=== PATIENT | male | born 1985 | race Hispanic/Latino ===

== ENCOUNTER 2018-07-22 03:33 | Inpatient (IN) | payer OTHER ==
[2018-07-22] VITALS (12 sets, daily range): BP systolic 100–149; BP diastolic 64–106
[~2018-07-22] VITALS: Ht 180.3 cm; Wt 162.7 kg
[2018-07-22] MEDS ORDERED: MORPHINE SULFATE 4 MG/1ML SYG IV PRN (04:30)
[2018-07-22] MEDS ORDERED: ONDANSETRON HCL 4 MG/2 ML VIAL IV PRN (04:30)
[2018-07-22] MEDS ORDERED: ACETAMINOPHEN 325 MG TAB PO PRN ×2 (04:30)
[2018-07-22] MEDS ORDERED: MORPHINE SULFATE 2 MG/ML 1ML SYG IV PRN (04:30)
[2018-07-22] MEDS ORDERED: LORAZEPAM 2 MG/ML 1 ML VIAL IVP PRN (04:45)
[2018-07-22] MEDS ORDERED: DEXTROSE 50%-WATER 50 ML DISP.SYRIN IV PRN ×2 (05:00→10:15)
[2018-07-22] MEDS ORDERED: GLUCAGON 1MG KIT 1 MG ML IM PRN ×2 (05:00→10:15)
[2018-07-22] MEDS: INSULIN HUMULIN R 100 UNIT/ML 3ML SQ SCH ×4 (06:14→21:00)
[2018-07-22 08:49] LABS: HEMATOCRIT 44.9 % (42-54); MEAN CORPUSCULAR HEMOGLOBIN 25.4 pg (27.0-33.0); MEAN CORPUSCULAR HGB CONC 32.1 g/dL (32.0-36.0); PLATELET COUNT (AUTO) 340 K/uL (130-400); RED BLOOD CELL COUNT(AUTO) 5.68 MIL/uL (4.50-6.20); RED CELL DISTRIBUTION WIDTH 16.7 % (11.0-15.5)
[2018-07-22 09:03] LABS: INR 0.92 (0.85-1.15); PARTIAL THROMBOPLASTIN TIME 27.7 SEC (26.3-35.5); PROTHROMBIN TIME 9.7 SEC (9.6-11.6)
[2018-07-22 09:07] LABS: CREATININE 1.1 mg/dL (0.5-1.5); POTASSIUM 4.8 mmol/L (3.5-5.1)
[2018-07-22] MEDS ORDERED: IOHEXOL 350 MG/ML 100ML INFUS..BTL IV ONE (09:13)
[2018-07-22] MEDS ORDERED: HEPARIN SODIUM 1000UNIT/ML 10ML VIAL ONE (09:13)
[2018-07-22] MEDS ORDERED: LIDOCAINE HCL 1% 20 ML VIAL ONE (09:13)
[2018-07-22] MEDS ORDERED: IOHEXOL-350 50ML VIAL IV ONE (09:13)
[2018-07-22] MEDS ORDERED: MIDAZOLAM HCL 1 MG/ML 2ML VIAL ONE (09:47)
[2018-07-22] MEDS: FAMOTIDINE/PF 20 MG/2 ML VIAL IV SCH ×2 (10:45→20:42)
--- NOTE | 2018-07-22 11:30 | NUR ---
INITIAL Met with pt this am to discuss dcp. Pt states that he lives w spouse and 2children. Prior to admission he was independent w ambulation and ADLs. Per pt he feels safe and comfortable to return home at [facility]. Pt has no DME or prior services. Pt states that he seeks medical care @ [facility] and obtains medications thru their pharmacy. Discussed w pt cardiology recommendation for [facility] @ [facility]. Pt verbalizes understanding and signed GAYLE/PC. Orders and clinical faxed to [facility]. [facility] to continue to follow. Addendum: 07/22/18 at 1626 by SUSAN WESLEY CM Amended: Links added.
[2018-07-22] MEDS ORDERED: FUROSEMIDE 40 MG TABLET PO SCH (17:00)
[2018-07-22] MEDS: CARVEDILOL 6.25 MG TABLET PO SCH (20:42)
[2018-07-23] VITALS (7 sets, daily range): BP systolic 117–140; BP diastolic 63–99
[2018-07-23 03:31] LABS: BASOPHILS % (AUTO) 0.8 % (0.0-5.0); EOSINOPHILS % (AUTO) 4.2 % (0.0-8.0); HEMATOCRIT 44.4 % (42-54); LYMPHOCYTES % (AUTO) 11.2 % (21.0-51.0); MEAN CORPUSCULAR HEMOGLOBIN 25.6 pg (27.0-33.0); MEAN CORPUSCULAR HGB CONC 32.1 g/dL (32.0-36.0); MEAN CORPUSCULAR VOLUME 79.7 fL (79-99); MONOCYTES % (AUTO) 7.2 % (3.0-13.0); NEUTROPHILS % (AUTO) 76.6 % (40.0-77.0); PLATELET COUNT (AUTO) 310 K/uL (130-400); RED BLOOD CELL COUNT(AUTO) 5.57 MIL/uL (4.50-6.20); RED CELL DISTRIBUTION WIDTH 16.6 % (11.0-15.5); WHITE BLOOD COUNT (AUTO) 11.8 K/uL (4.8-10.8)
[2018-07-23 03:49] LABS: B-TYPE NATRIURETIC PEPTIDE 54 pg/mL (0-100)
[2018-07-23 03:50] LABS: CREATININE 1.1 mg/dL (0.5-1.5); POTASSIUM 4.5 mmol/L (3.5-5.1)
[2018-07-23] MEDS: INSULIN HUMULIN R 100 UNIT/ML 3ML SQ SCH ×2 (05:37→20:51)
[2018-07-23] MEDS: FAMOTIDINE/PF 20 MG/2 ML VIAL IV SCH ×2 (10:20→20:04)
[2018-07-23] MEDS: SPIRONOLACTONE 25 MG TAB PO SCH (10:20)
[2018-07-23] MEDS: LISINOPRIL 10 MG TABLET PO SCH (10:20)
[2018-07-23] MEDS: FOLIC ACID/VITAMIN B COMP W-C 1 MG CAPSULE PO SCH (10:20)
[2018-07-23] MEDS: FUROSEMIDE 40 MG TABLET PO SCH (10:21)
[2018-07-23] MEDS: CARVEDILOL 6.25 MG TABLET PO SCH ×2 (10:21→20:06)
--- NOTE | 2018-07-23 12:54 | NUR ---
RD Notification Patient with Pulmonary HTN as per EMR. Patient tolerating current diet with no report of GI distress and good PO (100%). Patient Obesity Class III (BMI 51.7). Patient LBM 07/22/18. Patient monitored labs: Na 135, Cl 98, BUN 20, Glu 118. RD to continue to monitor. Please notify RD as nutritional concerns arise. Thank you. Addendum: 07/23/18 at [address] Amended: Links added.
[2018-07-24 03:45] LABS: HEMATOCRIT 45.1 % (42-54); MEAN CORPUSCULAR HGB CONC 31.2 g/dL (32.0-36.0); MEAN CORPUSCULAR VOLUME 80.2 fL (79-99); PLATELET COUNT (AUTO) 356 K/uL (130-400); RED BLOOD CELL COUNT(AUTO) 5.62 MIL/uL (4.50-6.20); RED CELL DISTRIBUTION WIDTH 16.7 % (11.0-15.5); WHITE BLOOD COUNT (AUTO) 12.8 K/uL (4.8-10.8)
[2018-07-24 03:51] VITALS: BP 133/51
[2018-07-24 03:53] LABS: CREATININE 1.2 mg/dL (0.5-1.5); POTASSIUM 4.2 mmol/L (3.5-5.1)
[2018-07-24 04:04] LABS: HEMOGLOBIN A1C 6.8 % (4.0-6.0)
[2018-07-24 04:13] LABS: B-TYPE NATRIURETIC PEPTIDE 42 pg/mL (0-100)
[2018-07-24] MEDS: INSULIN HUMULIN R 100 UNIT/ML 3ML SQ SCH ×4 (05:52→20:46)
[2018-07-24 07:00] VITALS: BP 115/68
--- NOTE | 2018-07-24 07:40 | NUR ---
ASSESSMENT ENCOUNTERED PT A&OX3, CALM COOPERATIVE AND DOES NOT APPEAR TO BE IN ANY DISTRESS NOR ANY NEURO DEFICITS PRESENT. PT DENIES PAIN, SOB, NAUSEA. PT IS AMBULATORY, GAIT STEADY AND STRONG WITH STAND BY ASSIST. PT IS NPO FOR AICD PLACEMENT BY DR LAI. CALL LIGHT WITHIN REACH, FAMILY AT BEDSIDE.
[2018-07-24] MEDS: LISINOPRIL 10 MG TABLET PO SCH (08:40)
[2018-07-24] MEDS: CARVEDILOL 6.25 MG TABLET PO SCH ×2 (08:40→20:35)
[2018-07-24] MEDS: FAMOTIDINE/PF 20 MG/2 ML VIAL IV SCH ×2 (09:00→20:35)
[2018-07-24 11:00] VITALS: BP 126/72
[2018-07-24] MEDS: SPIRONOLACTONE 25 MG TAB PO SCH (14:01)
[2018-07-24] MEDS: FOLIC ACID/VITAMIN B COMP W-C 1 MG CAPSULE PO SCH (14:01)
[2018-07-24] MEDS: FUROSEMIDE 40 MG TABLET PO SCH (14:02)
[2018-07-24 16:00] VITALS: BP 115/72
[2018-07-24] MEDS ORDERED: METRONIDAZOLE 500 MG TABLET PO SCH (17:15)
[2018-07-24] MEDS ORDERED: LEVOFLOXACIN 500 MG/D5W 100 ML 100 ML IV SCH ×2 (17:15→20:00)
[2018-07-24 20:04] VITALS: BP 115/58
[2018-07-24] MEDS: METRONIDAZOLE 500 MG TABLET PO SCH (21:37)
[2018-07-24 23:44] VITALS: BP 121/64
[2018-07-25 03:49] VITALS: BP 134/58
[2018-07-25 04:26] LABS: HEMATOCRIT 44.8 % (42-54); MEAN CORPUSCULAR HEMOGLOBIN 25.3 pg (27.0-33.0); MEAN CORPUSCULAR HGB CONC 31.6 g/dL (32.0-36.0); MEAN CORPUSCULAR VOLUME 80.1 fL (79-99); NUCLEATED RED BLOOD CELLS 0.1 % (0.0-0.19); PLATELET COUNT (AUTO) 314 K/uL (130-400); RED CELL DISTRIBUTION WIDTH 16.8 % (11.0-15.5); WHITE BLOOD COUNT (AUTO) 12.7 K/uL (4.8-10.8)
[2018-07-25 04:39] LABS: CREATININE 1.2 mg/dL (0.5-1.5); MAGNESIUM 1.8 mg/dL (1.80-2.40); PHOSPHORUS 4.2 mg/dL (2.5-4.9); POTASSIUM 4.2 mmol/L (3.5-5.1)
[2018-07-25] MEDS: METRONIDAZOLE 500 MG TABLET PO SCH ×3 (05:38→21:36)
[2018-07-25] MEDS: INSULIN HUMULIN R 100 UNIT/ML 3ML SQ SCH ×4 (05:53→21:00)
--- NOTE | 2018-07-25 07:26 | NUR ---
ASSESSMENT PT IS AAOX4 DENIES CP DENIES SOB DENIES NV NO COMPLAINTS RESTING IN BED. NO VISIBLE SIGNS OF DISTRESS NOTED, CALL LIGHT WITHIN REACH.
[2018-07-25] MEDS: FAMOTIDINE/PF 20 MG/2 ML VIAL IV SCH ×2 (07:58→21:33)
[2018-07-25] MEDS: FOLIC ACID/VITAMIN B COMP W-C 1 MG CAPSULE PO SCH (07:58)
[2018-07-25] MEDS: LOSARTAN 50 MG TABLET PO SCH (07:58)
[2018-07-25] MEDS: CARVEDILOL 6.25 MG TABLET PO SCH ×2 (07:58→21:33)
[2018-07-25] MEDS: FUROSEMIDE 40 MG TABLET PO SCH (07:58)
[2018-07-25] MEDS: SPIRONOLACTONE 25 MG TAB PO SCH (07:58)
[2018-07-25 08:00] VITALS: BP 114/75
[2018-07-25] MEDS ORDERED: NEBI10TA PO (09:00)
[2018-07-25] MEDS ORDERED: BUSP10TA3 PO (09:00)
[2018-07-25] MEDS ORDERED: BUPR-93 PO (09:00)
[2018-07-25] MEDS ORDERED: PITA2TAB2 PO (09:00)
[2018-07-25] MEDS ORDERED: LIRA0.6P2 SQ (09:00)
[2018-07-25] MEDS ORDERED: MELA1TAB17 PO (09:00)
[2018-07-25] MEDS ORDERED: SITA1TBM7 PO (09:00)
[2018-07-25 11:59] VITALS: BP 108/71
[2018-07-25] MEDS ORDERED: VANCOMYCIN 1GM+NS 250ML 250 ML IV PRN (12:15)
[2018-07-25 14:15] LABS: APPEARANCE,URINE Clear (CLEAR); BILIRUBIN,URINE Negative (NEGATIVE); COLOR,URINE Yellow (YELLOW); GLUCOSE, URINE (UA) Negative (NEGATIVE); KETONES,URINE Negative (NEGATIVE); LEUKOCYTE ESTERASE ,URINE Negative (NEGATIVE); NITRATE,URINE Negative (NEGATIVE); OCCULT BLOOD,URINE Negative (NEGATIVE); PROTEIN,URINE Negative (NEGATIVE); UROBILINOGEN,URINE 0.2 mg/dL (0.2-1.0)
[2018-07-25 14:49] LABS: BACTERIA,URINE Rare /HPF (None Seen); RBC,URINE 0-1 /HPF (0-1); SQUAMOUS EPITHELIAL CELL,UR None Seen /HPF (0-2); WBC,URINE 0-1 /HPF (0-1)
[2018-07-25 16:00] VITALS: BP 128/83
[2018-07-25 20:46] VITALS: BP 122/68
[2018-07-25] MEDS: LEVOFLOXACIN 500 MG TABLET PO SCH (21:33)
[2018-07-26 00:40] VITALS: BP 119/75
[2018-07-26 03:36] LABS: BASOPHILS % (AUTO) 0.8 % (0.0-5.0); EOSINOPHILS % (AUTO) 3.4 % (0.0-8.0); HEMATOCRIT 44.3 % (42-54); LYMPHOCYTES % (AUTO) 12.5 % (21.0-51.0); MEAN CORPUSCULAR HGB CONC 31.2 g/dL (32.0-36.0); MEAN CORPUSCULAR VOLUME 79.9 fL (79-99); MONOCYTES % (AUTO) 5.9 % (3.0-13.0); NEUTROPHILS % (AUTO) 77.4 % (40.0-77.0); PLATELET COUNT (AUTO) 353 K/uL (130-400); RED BLOOD CELL COUNT(AUTO) 5.54 MIL/uL (4.50-6.20); RED CELL DISTRIBUTION WIDTH 16.9 % (11.0-15.5); WHITE BLOOD COUNT (AUTO) 13.3 K/uL (4.8-10.8)
[2018-07-26 03:41] LABS: CREATININE 1.3 mg/dL (0.5-1.5); POTASSIUM 3.8 mmol/L (3.5-5.1)
[2018-07-26 04:39] VITALS: BP 132/67
[2018-07-26] MEDS: METRONIDAZOLE 500 MG TABLET PO SCH ×3 (06:12→22:31)
[2018-07-26] MEDS: INSULIN HUMULIN R 100 UNIT/ML 3ML SQ SCH ×4 (06:14→21:00)
[2018-07-26 07:37] VITALS: BP 134/70
--- NOTE | 2018-07-26 08:00 | NUR ---
ASSESSMENT PT IS AAOX3 DENIES CP DENIES SOB DENIES NV NO COMPLAINTS RESTING IN BED. NPO STATUS FOR AICD PLACEMENT TODAY.
[2018-07-26] MEDS: FUROSEMIDE 40 MG TABLET PO SCH (08:18)
[2018-07-26] MEDS: LACTOBACILLUS RHAMNOSUS GG 1 EACH CAP.SPRINK PO SCH (08:18)
[2018-07-26] MEDS: CARVEDILOL 6.25 MG TABLET PO SCH ×2 (08:18→20:27)
[2018-07-26] MEDS: FOLIC ACID/VITAMIN B COMP W-C 1 MG CAPSULE PO SCH (08:18)
[2018-07-26] MEDS: LOSARTAN 50 MG TABLET PO SCH (08:18)
[2018-07-26] MEDS: SPIRONOLACTONE 25 MG TAB PO SCH (08:18)
[2018-07-26] MEDS: FAMOTIDINE/PF 20 MG/2 ML VIAL IV SCH ×2 (08:29→20:28)
--- NOTE | 2018-07-26 09:50 | NUR ---
REY HUERTA ROUNDED POSTPONED AICD PLACEMENT FOR TOMORROW, SCHEDULING MADE AWARE.
[2018-07-26 11:16] VITALS: BP 107/71
[2018-07-26 15:36] VITALS: BP 130/81
[2018-07-26] MEDS ORDERED: IOHEXOL 350 MG/ML 100ML INFUS..BTL IV ONE (19:14)
[2018-07-26 19:51] VITALS: BP 144/84
[2018-07-26] MEDS: LEVOFLOXACIN 500 MG TABLET PO SCH (20:27)
[2018-07-27] VITALS (7 sets, daily range): BP systolic 119–137; BP diastolic 73–92
[2018-07-27 04:00] LABS: HEMATOCRIT 44.2 % (42-54); MEAN CORPUSCULAR HEMOGLOBIN 25.7 pg (27.0-33.0); MEAN CORPUSCULAR HGB CONC 32.1 g/dL (32.0-36.0); MEAN CORPUSCULAR VOLUME 80.2 fL (79-99); PLATELET COUNT (AUTO) 313 K/uL (130-400); RED BLOOD CELL COUNT(AUTO) 5.51 MIL/uL (4.50-6.20); RED CELL DISTRIBUTION WIDTH 16.7 % (11.0-15.5); WHITE BLOOD COUNT (AUTO) 10.6 K/uL (4.8-10.8)
[2018-07-27 04:16] LABS: CREATININE 1.2 mg/dL (0.5-1.5); POTASSIUM 4.5 mmol/L (3.5-5.1)
[2018-07-27] MEDS: INSULIN HUMULIN R 100 UNIT/ML 3ML SQ SCH ×3 (06:18→21:00)
[2018-07-27] MEDS: METRONIDAZOLE 500 MG TABLET PO SCH ×3 (06:21→21:14)
--- NOTE | 2018-07-27 07:30 | NUR ---
ASSESSMENT ENCOUNTERED PT A&OX3, CALM COOPERATIVE AND DOES NOT APPEAR TO BE IN ANY DISTRESS NOR ANY NEURO DEFICITS PRESENT. PT DENIES PAIN, SOB, NAUSEA. PT IS AMBULATORY, GAIT STEADY AND STRONG WITH STAND BY ASSIST. PT IS NPO FOR AICD PLACEMENT BY DR LAI, CALL LIGHT WITHIN REACH, FAMILY AT BEDSIDE.
[2018-07-27] MEDS: FOLIC ACID/VITAMIN B COMP W-C 1 MG CAPSULE PO SCH (12:30)
[2018-07-27] MEDS: FAMOTIDINE/PF 20 MG/2 ML VIAL IV SCH ×2 (12:30→21:13)
[2018-07-27] MEDS: LOSARTAN 50 MG TABLET PO SCH (12:31)
[2018-07-27] MEDS: CARVEDILOL 6.25 MG TABLET PO SCH ×2 (12:31→21:14)
[2018-07-27] MEDS: FUROSEMIDE 40 MG TABLET PO SCH (12:31)
[2018-07-27] MEDS: SPIRONOLACTONE 25 MG TAB PO SCH (12:31)
[2018-07-27] MEDS: LEVOFLOXACIN 500 MG TABLET PO SCH (21:14)
--- NOTE | 2018-07-27 22:05 | NUR ---
PATIENT REQUESTED THAT IV SITE BE CHANGED. IV FLUSHED WITHOUT DIFFICULTY. NEW IV SITE RT AC WITH 2O GAUGE, GOOD BLOOD RETURN NOTED AND FLUSHED WITHOUT DIFFICULTY. LT AC IV DC'D.
[2018-07-28] VITALS (7 sets, daily range): BP systolic 102–129; BP diastolic 61–78
[2018-07-28 03:38] LABS: HEMATOCRIT 45.7 % (42-54); MEAN CORPUSCULAR HEMOGLOBIN 25.2 pg (27.0-33.0); MEAN CORPUSCULAR HGB CONC 31.3 g/dL (32.0-36.0); MEAN CORPUSCULAR VOLUME 80.3 fL (79-99); NUCLEATED RED BLOOD CELLS 0.1 % (0.0-0.19); PLATELET COUNT (AUTO) 331 K/uL (130-400); WHITE BLOOD COUNT (AUTO) 12.2 K/uL (4.8-10.8)
[2018-07-28 03:46] LABS: CREATININE 1.2 mg/dL (0.5-1.5)
[2018-07-28] MEDS: METRONIDAZOLE 500 MG TABLET PO SCH ×3 (05:21→21:05)
[2018-07-28] MEDS: INSULIN HUMULIN R 100 UNIT/ML 3ML SQ SCH ×3 (05:32→16:14)
--- NOTE | 2018-07-28 07:40 | NUR ---
ASSESSMENT ENCOUNTERED PT ASLEEP BUT AROUSEABLE, A&OX3, CALM COOPERATIVE AND DOES NOT APPEAR TO BE IN ANY DISTRESS NOR ANY NEURO DEFICITS PRESENT. PT DENIES PAIN, SOB, NAUSEA. PT IS AMBULATORY, GAIT STEADY AND STRONG WITH STAND BY ASSIST. CALL LIGHT WITHIN REACH.
[2018-07-28] MEDS: FOLIC ACID/VITAMIN B COMP W-C 1 MG CAPSULE PO SCH (09:18)
[2018-07-28] MEDS: SPIRONOLACTONE 25 MG TAB PO SCH (09:19)
[2018-07-28] MEDS: CARVEDILOL 6.25 MG TABLET PO SCH ×2 (09:19→20:19)
[2018-07-28] MEDS: LACTOBACILLUS RHAMNOSUS GG 1 EACH CAP.SPRINK PO SCH ×2 (09:19→09:22)
[2018-07-28] MEDS: FUROSEMIDE 40 MG TABLET PO SCH (09:19)
[2018-07-28] MEDS: FAMOTIDINE/PF 20 MG/2 ML VIAL IV SCH ×2 (09:19→20:18)
[2018-07-28] MEDS: LOSARTAN 50 MG TABLET PO SCH (09:20)
[2018-07-28] MEDS: LEVOFLOXACIN 500 MG TABLET PO SCH (20:19)
[2018-07-29 04:06] VITALS: BP 129/78
[2018-07-29 04:20] LABS: HEMATOCRIT 43.5 % (42-54); MEAN CORPUSCULAR HGB CONC 31.4 g/dL (32.0-36.0); MEAN CORPUSCULAR VOLUME 79.5 fL (79-99); PLATELET COUNT (AUTO) 336 K/uL (130-400); RED BLOOD CELL COUNT(AUTO) 5.48 MIL/uL (4.50-6.20); WHITE BLOOD COUNT (AUTO) 11.4 K/uL (4.8-10.8)
[2018-07-29 04:23] LABS: CREATININE 1.2 mg/dL (0.5-1.5); POTASSIUM 3.6 mmol/L (3.5-5.1)
[2018-07-29 04:48] LABS: BAND NEUTROPHILS % (MANUAL) 1 % (0-2); EOSINOPHILS % (MANUAL) 1 % (1-6); LYMPHOCYTES % (MANUAL) 24 % (22-44); MAN.DIFF COMMENT-IMPRESSION MANUAL DIFFERENTIAL; MONOCYTES % (MANUAL) 4 % (2-9); REACTIVE LYMPHOCYTES 1 % (0-0); SEGMENTED NEUTROPHILS % 69 % (40-70)
[2018-07-29] MEDS: METRONIDAZOLE 500 MG TABLET PO SCH ×3 (05:49→22:01)
--- NOTE | 2018-07-29 07:35 | NUR ---
ASSESSMENT ENCOUNTERED PT AMBULATING AROUND ROOM, A&OX3, GAIT STEADY AND STRONG WITH STAND BY ASSIST, CALM COOPERATIVE AND DOES NOT APPEAR TO BE IN ANY DISTRESS NOR ANY NEURO DEFICITS PRESENT. PT DENIES PAIN, SOB, NAUSEA. CALL LIGHT WITHIN REACH, FAMILY AT BEDSIDE.
[2018-07-29 07:53] VITALS: BP 118/75
[2018-07-29] MEDS: FOLIC ACID/VITAMIN B COMP W-C 1 MG CAPSULE PO SCH (08:10)
[2018-07-29] MEDS: SPIRONOLACTONE 25 MG TAB PO SCH (08:10)
[2018-07-29] MEDS: FAMOTIDINE 20MG TAB 20 MG TAB PO SCH ×2 (08:11→22:01)
[2018-07-29] MEDS: LOSARTAN 50 MG TABLET PO SCH (08:11)
[2018-07-29] MEDS: LACTOBACILLUS RHAMNOSUS GG 1 EACH CAP.SPRINK PO SCH (08:11)
[2018-07-29] MEDS: FUROSEMIDE 40 MG TABLET PO SCH (08:11)
[2018-07-29] MEDS: CARVEDILOL 6.25 MG TABLET PO SCH ×2 (08:11→22:02)
[2018-07-29 11:14] VITALS: BP 125/89
[2018-07-29 16:20] VITALS: BP 126/76
[2018-07-29 19:00] VITALS: BP 139/80
--- NOTE | 2018-07-29 19:30 | NUR ---
Received bedside report pt. for possible AICD placement tomorrow no official order but to keep pt. NPO postmidnight.
[2018-07-29] MEDS: LEVOFLOXACIN 500 MG TABLET PO SCH (22:01)
[2018-07-29 23:00] VITALS: BP 133/84
--- NOTE | 2018-07-30 | NUR ---
Pt. instructed to be on NPO for a possible procedure tomorrow and demonstrated understanding.
[2018-07-30 03:00] VITALS: BP 108/68
[2018-07-30 04:52] LABS: HEMATOCRIT 43.9 % (42-54); MEAN CORPUSCULAR HEMOGLOBIN 25.9 pg (27.0-33.0); MEAN CORPUSCULAR HGB CONC 32.4 g/dL (32.0-36.0); MEAN CORPUSCULAR VOLUME 80.1 fL (79-99); NUCLEATED RED BLOOD CELLS 0.1 % (0.0-0.19); PLATELET COUNT (AUTO) 296 K/uL (130-400); RED BLOOD CELL COUNT(AUTO) 5.48 MIL/uL (4.50-6.20); WHITE BLOOD COUNT (AUTO) 10.4 K/uL (4.8-10.8)
[2018-07-30 05:02] LABS: CREATININE 1.1 mg/dL (0.5-1.5)
[2018-07-30 05:44] LABS: BASOPHILS % (MANUAL) 1 % (0-2); EOSINOPHILS % (MANUAL) 1 % (1-6); LYMPHOCYTES % (MANUAL) 15 % (22-44); MAN.DIFF COMMENT-IMPRESSION MANUAL DIFFERENTIAL; MONOCYTES % (MANUAL) 5 % (2-9); SEGMENTED NEUTROPHILS % 78 % (40-70)
[2018-07-30] MEDS: METRONIDAZOLE 500 MG TABLET PO SCH ×3 (06:00→20:22)
[2018-07-30 07:40] VITALS: BP 102/65
--- NOTE | 2018-07-30 07:56 | NUR ---
Pt. remained NPO ,VS stable, bedside report given to incoming NOD using SBAR all questions answered.
[2018-07-30] MEDS: FOLIC ACID/VITAMIN B COMP W-C 1 MG CAPSULE PO SCH (10:09)
[2018-07-30] MEDS: LACTOBACILLUS RHAMNOSUS GG 1 EACH CAP.SPRINK PO SCH (10:09)
[2018-07-30] MEDS: FUROSEMIDE 40 MG TABLET PO SCH (10:09)
[2018-07-30] MEDS: LOSARTAN 50 MG TABLET PO SCH (10:09)
[2018-07-30] MEDS: SPIRONOLACTONE 25 MG TAB PO SCH (10:09)
[2018-07-30] MEDS: FAMOTIDINE 20MG TAB 20 MG TAB PO SCH ×2 (10:10→20:22)
[2018-07-30] MEDS: CARVEDILOL 6.25 MG TABLET PO SCH ×2 (10:10→20:22)
[2018-07-30 11:20] VITALS: BP_SYST 111; BP_SYST 131; BP_DIAS 58; BP_DIAS 85
[2018-07-30] MEDS ORDERED: PHARMACY COMMUNICATION MISC SCH (14:00)
[2018-07-30 15:19] VITALS: BP 138/88
--- NOTE | 2018-07-30 15:23 | NUR ---
RD Follow up note Pt tolerating Heart Healthy CCD with PO intake at 100% previous to held diet. Diet held for procedure. Pt with Hx DM; Rec to add 75gm CC diet modifier. Noted 2+ BLE pitting Edema as per EMR. Monitored lab: Glu 110, All other labs WNL. RD to continue to monitor. Please notify RD as nutritional concerns arise. Thank you. Addendum: 07/30/18 at [address] Amended: Links added.
[2018-07-30] MEDS ORDERED: VANCOMYCIN 1GM+NS 250ML 250 ML IV PRN (15:30)
[2018-07-30 20:00] VITALS: BP 136/81
[2018-07-30] MEDS: LEVOFLOXACIN 500 MG TABLET PO SCH (20:22)
[2018-07-30 23:47] VITALS: BP 134/88
[2018-07-31] VITALS (11 sets, daily range): BP systolic 118–149; BP diastolic 65–106
[2018-07-31 04:01] LABS: HEMATOCRIT 43.8 % (42-54); MEAN CORPUSCULAR HEMOGLOBIN 25.4 pg (27.0-33.0); MEAN CORPUSCULAR HGB CONC 31.9 g/dL (32.0-36.0); MEAN CORPUSCULAR VOLUME 79.7 fL (79-99); NUCLEATED RED BLOOD CELLS 0.1 % (0.0-0.19); PLATELET COUNT (AUTO) 334 K/uL (130-400); RED CELL DISTRIBUTION WIDTH 16.8 % (11.0-15.5); WHITE BLOOD COUNT (AUTO) 11.3 K/uL (4.8-10.8)
[2018-07-31 04:06] LABS: POTASSIUM 3.8 mmol/L (3.5-5.1)
[2018-07-31 04:28] LABS: B-TYPE NATRIURETIC PEPTIDE 73 pg/mL (0-100)
[2018-07-31] MEDS: METRONIDAZOLE 500 MG TABLET PO SCH ×3 (05:21→21:29)
[2018-07-31] MEDS ORDERED: LIDOCAINE HCL 1% MDV 50ML VIAL ONE (09:37)
[2018-07-31] MEDS ORDERED: BUPIVACAINE/PF 0.25% 30ML VIAL IJ ONE (09:37)
[2018-07-31] MEDS ORDERED: IODIXANOL 320 MG/ML 100 ML VIAL ONE (09:37)
[2018-07-31] MEDS ORDERED: VANCOMYCIN 1GM+NS 250ML 250 ML IV ONE ×2 (09:38)
[2018-07-31] MEDS ORDERED: MEPERIDINE-PF 25 MG/ML SYG ONE ×4 (10:12→11:14)
[2018-07-31] MEDS ORDERED: MIDAZOLAM HCL 1 MG/ML 2ML VIAL ONE ×4 (10:12→11:14)
[2018-07-31] MEDS ORDERED: ACETAMINOPHEN EXTRA STRENGTH 500 MG TABLET PO PRN (12:00)
--- NOTE | 2018-07-31 12:15 | NUR ---
PATIENT ARRIVED S/P BIVENTRICULAR AICD INSERTION TODAY BY DR LAI; SITE CLEAN AND DRY; NO HEMATOMA NOTED; PATIENT IS NOT COMPLAINING OF ANY PAIN AT THIS TIME.
[2018-07-31] MEDS: LACTOBACILLUS RHAMNOSUS GG 1 EACH CAP.SPRINK PO SCH (13:21)
[2018-07-31] MEDS: FOLIC ACID/VITAMIN B COMP W-C 1 MG CAPSULE PO SCH (13:21)
[2018-07-31] MEDS: FUROSEMIDE 40 MG TABLET PO SCH (13:22)
[2018-07-31] MEDS: LOSARTAN 50 MG TABLET PO SCH (13:22)
[2018-07-31] MEDS: CARVEDILOL 6.25 MG TABLET PO SCH ×2 (13:22→21:30)
[2018-07-31] MEDS: SPIRONOLACTONE 25 MG TAB PO SCH (13:22)
[2018-07-31] MEDS: FAMOTIDINE 20MG TAB 20 MG TAB PO SCH ×2 (13:22→21:30)
[2018-07-31] MEDS: ACETAMINOPHEN-CODEINE 300/30MG TAB PO PRN ×2 (16:37→22:13)
[2018-07-31] MEDS: LEVOFLOXACIN 500 MG TABLET PO SCH (21:30)
[2018-08-01 03:44] VITALS: BP 129/76
[2018-08-01] MEDS: ACETAMINOPHEN-CODEINE 300/30MG TAB PO PRN ×2 (03:58→11:53)
[2018-08-01 04:02] LABS: HEMATOCRIT 42.4 % (42-54); MEAN CORPUSCULAR HEMOGLOBIN 25.7 pg (27.0-33.0); MEAN CORPUSCULAR HGB CONC 32.1 g/dL (32.0-36.0); PLATELET COUNT (AUTO) 261 K/uL (130-400); RED CELL DISTRIBUTION WIDTH 17.2 % (11.0-15.5); WHITE BLOOD COUNT (AUTO) 11.6 K/uL (4.8-10.8)
[2018-08-01 04:16] LABS: POTASSIUM 3.8 mmol/L (3.5-5.1)
[2018-08-01] MEDS: METRONIDAZOLE 500 MG TABLET PO SCH ×2 (06:26→17:01)
[2018-08-01 07:59] VITALS: BP 125/72
[2018-08-01] MEDS: LACTOBACILLUS RHAMNOSUS GG 1 EACH CAP.SPRINK PO SCH (08:46)
[2018-08-01] MEDS: FAMOTIDINE 20MG TAB 20 MG TAB PO SCH (08:46)
[2018-08-01] MEDS: FOLIC ACID/VITAMIN B COMP W-C 1 MG CAPSULE PO SCH (08:46)
[2018-08-01] MEDS: LOSARTAN 50 MG TABLET PO SCH (08:46)
[2018-08-01] MEDS: SPIRONOLACTONE 25 MG TAB PO SCH (08:46)
[2018-08-01] MEDS: CARVEDILOL 6.25 MG TABLET PO SCH (08:46)
[2018-08-01] MEDS: FUROSEMIDE 40 MG TABLET PO SCH (08:47)
[2018-08-01 11:25] VITALS: BP 125/76
--- NOTE | 2018-08-01 12:44 | NUR ---
DR. BERRY IN ROOM SPEAKING WITH PT.
[2018-08-01 15:51] VITALS: BP 118/70
[2018-08-01] MEDS ORDERED: CARV6.2579 PO (17:04)
[2018-08-01] MEDS ORDERED: FURO40TA7 PO (17:04)
[2018-08-01] MEDS ORDERED: LOSA50TA2 PO (17:04)
[2018-08-01] MEDS ORDERED: SPIR25TA PO (17:04)
--- NOTE | 2018-08-01 18:30 | NUR ---
HL REMOVED, CATHETER INTACT. DISCHARGE INSTRUCTIONS GIVEN TO PT. AND SPOUSE AT BEDSIDE. LIGHT DRESSING CHANGE PERFORMED TO LEFT UPPER CHEST INCISION SITE AND PT. AND SPOUSE INSTRUCTED ON TECHNIQUE PER DR. LAI'S ORDERS; VERBALIZED MUTUAL UNDERSTANDING AND SUPPLIES PROVIDED ORDERED.
== END 2018-08-01 18:47 | disposition home or self-care (01) | DRG 224 ==
LOC: 2AH 03:33
PROVIDERS: ADMIT Hospitalist; ATTEND Hospitalist
PROC: 4A023N7 Measurement of Cardiac Sampling and Pressure, Left Heart, Percutaneous Approach (ICD-10-PCS; principal; 2018-07-22)
PROC: B2111ZZ Fluoroscopy of Multiple Coronary Arteries using Low Osmolar Contrast (ICD-10-PCS; 2018-07-22)
PROC: 5A09357 Assistance with Respiratory Ventilation, Less than 24 Consecutive Hours, Continuous Positive Airway Pressure (ICD-10-PCS; 2018-07-26)
PROC: 5A09357 Assistance with Respiratory Ventilation, Less than 24 Consecutive Hours, Continuous Positive Airway Pressure (ICD-10-PCS; 2018-07-27)
PROC: 0JH609Z Insertion of Cardiac Resynchronization Defibrillator Pulse Generator into Chest Subcutaneous Tissue and Fascia, Open Approach (ICD-10-PCS; 2018-07-31)
PROC: 02HL3KZ Insertion of Defibrillator Lead into Left Ventricle, Percutaneous Approach (ICD-10-PCS; 2018-07-31)
PROC: 02HK3KZ Insertion of Defibrillator Lead into Right Ventricle, Percutaneous Approach (ICD-10-PCS; 2018-07-31)
PROC: B5171ZZ Fluoroscopy of Left Subclavian Vein using Low Osmolar Contrast (ICD-10-PCS; 2018-07-31)
PROC: 5A09357 Assistance with Respiratory Ventilation, Less than 24 Consecutive Hours, Continuous Positive Airway Pressure (ICD-10-PCS; 2018-08-01)
DX: I44.0 Atrioventricular block, first degree (principal); I50.23 Acute on chronic systolic (congestive) heart failure; Z68.43 Body mass index [BMI] 50.0-59.9, adult; I27.20 Pulmonary hypertension, unspecified; I42.0 Dilated cardiomyopathy; E11.65 Type 2 diabetes mellitus with hyperglycemia; E66.01 Morbid (severe) obesity due to excess calories; I44.7 Left bundle-branch block, unspecified; D72.829 Elevated white blood cell count, unspecified; E78.5 Hyperlipidemia, unspecified; F14.10 Cocaine abuse, uncomplicated; G47.33 Obstructive sleep apnea (adult) (pediatric); I11.0 Hypertensive heart disease with heart failure; R56.9 Unspecified convulsions; R09.89 Other specified symptoms and signs involving the circulatory and respiratory systems; F41.8 Other specified anxiety disorders; Z79.899 Other long term (current) drug therapy
CPT/HCPCS: 33225; 33249; 36415; 71045; 71046; 71275; 80048; 80061; 81001; 82948; 83036; 83735; 83880; 84100; 85025; 85027; 85610; 85730; 87040; 87088; 87324; 93005; 93458; 93970; 94660; 99156; 99157; C1769; C1894; G0378; J1644; J1815; J1956; J2175; J2250; J3370; J3490; Q9967

== ENCOUNTER 2019-01-22 08:06 | Observation (INO) | payer SELFPAY ==
[2019-01-08 13:35] LABS: BASOPHILS % (AUTO) 0.4 % (0.0-5.0); EOSINOPHILS % (AUTO) 4.3 % (0.0-8.0); HEMATOCRIT 43.2 % (42-54); LYMPHOCYTES % (AUTO) 14.9 % (21.0-51.0); MEAN CORPUSCULAR HEMOGLOBIN 29.2 pg (27.0-33.0); MEAN CORPUSCULAR HGB CONC 33.1 g/dL (32.0-36.0); MONOCYTES % (AUTO) 6.9 % (3.0-13.0); NEUTROPHILS % (AUTO) 73.5 % (40.0-77.0); NUCLEATED RED BLOOD CELLS 0.1 % (0.0-0.19); PLATELET COUNT (AUTO) 241 K/uL (130-400); RED BLOOD CELL COUNT(AUTO) 4.91 MIL/uL (4.50-6.20); RED CELL DISTRIBUTION WIDTH 14.4 % (11.0-15.5); WHITE BLOOD COUNT (AUTO) 9.4 K/uL (4.8-10.8)
[2019-01-08 13:43] VITALS: BP 155/76
[2019-01-08 13:46] LABS: CREATININE 0.9 mg/dL (0.5-1.5); POTASSIUM 3.8 mmol/L (3.5-5.1)
[2019-01-08 13:50] LABS: INR 0.94 (0.85-1.15); PARTIAL THROMBOPLASTIN TIME 27.5 SEC (26.3-35.5); PROTHROMBIN TIME 9.9 SEC (9.6-11.6)
[2019-01-22] VITALS (10 sets, daily range): BP systolic 139–167; BP diastolic 57–96
[~2019-01-22] VITALS: Ht 181.6 cm; Wt 159.2 kg
[~2019-01-22 08:06] MED LIST: BUSP10TA3 PO; CEFAZOLIN SODIUM 1 GM VIAL IVP SCH; FURO40TA7 PO; LOSA50TA64 PO; METF-446 PO; PITA2TAB2 PO; SPIR25TA PO
[2019-01-22] MEDS: SODIUM CHLORIDE 0.9% 1000ML 1,000 ML IV SCH (08:30)
[2019-01-22] MEDS ORDERED: CARV6.25 PO (08:38)
[2019-01-22 09:30] LABS: HEMATOCRIT 42.9 % (42-54); MEAN CORPUSCULAR HEMOGLOBIN 29.1 pg (27.0-33.0); MEAN CORPUSCULAR HGB CONC 32.8 g/dL (32.0-36.0); MEAN CORPUSCULAR VOLUME 88.7 fL (79-99); PLATELET COUNT (AUTO) 239 K/uL (130-400); RED BLOOD CELL COUNT(AUTO) 4.83 MIL/uL (4.50-6.20); RED CELL DISTRIBUTION WIDTH 14.2 % (11.0-15.5); WHITE BLOOD COUNT (AUTO) 10.4 K/uL (4.8-10.8)
[2019-01-22 09:33] LABS: CREATININE 0.9 mg/dL (0.5-1.5)
[2019-01-22 10:21] LABS: BASOPHILS % (MANUAL) 1 % (0-2); EOSINOPHILS % (MANUAL) 4 % (1-6); LYMPHOCYTES % (MANUAL) 8 % (22-44); MAN.DIFF COMMENT-IMPRESSION MANUAL DIFFERENTIAL; MONOCYTES % (MANUAL) 5 % (2-9); PLATELET MORPHOLOGY COMMENT ADEQUATE; SEGMENTED NEUTROPHILS % 82 % (40-70)
--- NOTE | 2019-01-22 14:50 | NUR ---
REPORT REPORT GIVEN TO VIVEK CHOWDARY RN , PT REMAINS NPO WAITING TO BE TAKEN TO PROCEDURE.
--- NOTE | 2019-01-22 18:20 | NUR ---
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 Pt denies any pain or symptoms of hypoglycemia.
[2019-01-22] MEDS ORDERED: MIDAZOLAM HCL 1 MG/ML 2ML VIAL ONE ×4 (18:41→20:01)
[2019-01-22] MEDS ORDERED: MEPERIDINE-PF 25 MG/ML SYG ONE ×4 (18:41→20:02)
[2019-01-22] MEDS ORDERED: BUPIVACAINE/PF 0.25% 30ML VIAL IJ ONE (18:41)
[2019-01-22] MEDS ORDERED: CEFAZOLIN SODIUM 1 GM VIAL ONE (18:41)
[2019-01-22] MEDS ORDERED: LIDOCAINE HCL 1% MDV 50ML VIAL ONE (18:42)
[2019-01-22] MEDS ORDERED: IODIXANOL 320 MG/ML 100 ML VIAL ONE (19:00)
[2019-01-22] MEDS ORDERED: BUSPIRONE HCL 5 MG TABLET PO PRN (20:30)
[2019-01-22] MEDS ORDERED: TEMAZEPAM 30 MG CAP PO PRN (20:30)
[2019-01-22] MEDS: METFORMIN HCL 500 MG TABLET PO SCH (23:57)
[2019-01-22] MEDS: CARVEDILOL 6.25 MG TABLET PO SCH (23:58)
[2019-01-22] MEDS: ACETAMINOPHEN-CODEINE 300/30MG TAB PO PRN (23:58)
[2019-01-23] MEDS: SODIUM CHLORIDE 0.9% 1000ML 1,000 ML IV SCH (01:56)
[2019-01-23 03:37] VITALS: BP 151/72
[2019-01-23 08:07] VITALS: BP 140/85
[2019-01-23] MEDS ORDERED: FUROSEMIDE 40 MG TABLET PO SCH (09:00)
[2019-01-23] MEDS ORDERED: SPIRONOLACTONE 25 MG TAB PO SCH (09:00)
[2019-01-23] MEDS ORDERED: LOSARTAN 50 MG TABLET PO SCH (09:00)
[2019-01-23] MEDS: METFORMIN HCL 500 MG TABLET PO SCH (09:13)
[2019-01-23] MEDS: CARVEDILOL 6.25 MG TABLET PO SCH (09:14)
[2019-01-23 11:01] VITALS: BP 130/87
[2019-01-23] MEDS: ACETAMINOPHEN-CODEINE 300/30MG TAB PO PRN (11:07)
--- NOTE | 2019-01-23 12:45 | NUR ---
Patient discharged at 1245 all belongings went with the patient. Discharge instruction read, education, and all questions were answered
== END 2019-01-23 13:00 | disposition home or self-care (01) ==
LOC: DAH 08:06 → 2AH 08:07
PROVIDERS: ADMIT Internal Medicine Cardiovascular Disease; ATTEND Internal Medicine Cardiovascular Disease
DX: I34.0 Nonrheumatic mitral (valve) insufficiency (principal); T82.198A Other mechanical complication of other cardiac electronic device, initial encounter; I44.7 Left bundle-branch block, unspecified; I42.0 Dilated cardiomyopathy; I11.0 Hypertensive heart disease with heart failure; I50.22 Chronic systolic (congestive) heart failure; E11.9 Type 2 diabetes mellitus without complications; E78.5 Hyperlipidemia, unspecified; E66.01 Morbid (severe) obesity due to excess calories; Z95.810 Presence of automatic (implantable) cardiac defibrillator; Z79.899 Other long term (current) drug therapy; Y83.8 Other surgical procedures as the cause of abnormal reaction of the patient, or of later complication, without mention of misadventure at the time of the procedure; Y92.89 Other specified places as the place of occurrence of the external cause; Z68.42 Body mass index [BMI] 45.0-49.9, adult
CPT/HCPCS: 33226; 36415 ×2; 71045; 80048 ×2; 82948 ×2; 85025 ×2; 85610; 85730; 93005; A4215; A4216; A4221; A4222; A4223 ×3; A4606; A4663; C1769; G0378 ×17; J0690; J2175 ×4; J2250 ×4; J3490 ×2; Q9967; 99156; 99157

== ENCOUNTER 2019-03-17 20:36 | Inpatient (IN) | payer OTHER ==
[~2019-03-17] VITALS: Ht 180.3 cm; Wt 154.5 kg
[~2019-03-17 20:36] MED LIST changes: +CARV6.25 PO; -CEFAZOLIN SODIUM 1 GM VIAL IVP SCH
[2019-03-17] MEDS ORDERED: ASPIRIN 325 MG TABLET ONE (21:04)
[2019-03-17] MEDS ORDERED: NITROGLYCERIN 1GM/1 INCH PACKET TD ONE (21:04)
[2019-03-17 21:11] LABS: BASOPHILS % (AUTO) 0.3 % (0.0-5.0); EOSINOPHILS % (AUTO) 0.3 % (0.0-8.0); LYMPHOCYTES % (AUTO) 16.8 % (21.0-51.0); MEAN CORPUSCULAR HEMOGLOBIN 27.5 pg (27.0-33.0); MEAN CORPUSCULAR HGB CONC 32.5 g/dL (32.0-36.0); MEAN CORPUSCULAR VOLUME 84.6 fL (79-99); MONOCYTES % (AUTO) 4.8 % (3.0-13.0); NEUTROPHILS % (AUTO) 76.5 % (40.0-77.0); PLATELET COUNT (AUTO) 111 K/uL (130-400); RED BLOOD CELL COUNT(AUTO) 4.73 MIL/uL (4.50-6.20); RED CELL DISTRIBUTION WIDTH 13.4 % (11.0-15.5); WHITE BLOOD COUNT (AUTO) 3.1 K/uL (4.8-10.8)
[2019-03-17 21:12] LABS: APPEARANCE,URINE Clear (CLEAR); BILIRUBIN,URINE Negative (NEGATIVE); COLOR,URINE Dark Yellow (YELLOW); GLUCOSE, URINE (UA) Negative (NEGATIVE); KETONES,URINE Negative (NEGATIVE); LEUKOCYTE ESTERASE ,URINE Negative (NEGATIVE); NITRATE,URINE Negative (NEGATIVE); OCCULT BLOOD,URINE Negative (NEGATIVE); PH,URINE 5.5 (5.0-8.0); PROTEIN,URINE POS 2+ mg/dL (NEGATIVE)
[2019-03-17 21:20] LABS: AMPHET/METH SCREEN,URINE NEGATIVE (NEGATIVE); BARBITURATE SCREEN, URINE NEGATIVE (NEGATIVE); BENZODIAZEPINES SCREEN,URINE NEGATIVE (NEGATIVE); CANNABINOID SCREEN,URINE NEGATIVE (NEGATIVE); COCAINE SCREEN,URINE NEGATIVE (NEGATIVE); OPIATE SCREEN,URINE NEGATIVE (NEGATIVE); PHENCYCLIDINE SCREEN,URINE NEGATIVE (NEGATIVE)
[2019-03-17 21:22] LABS: CREATININE 1.2 mg/dL (0.5-1.5); POTASSIUM 3.4 mmol/L (3.5-5.1)
[2019-03-17 21:24] LABS: INR 1.03 (0.85-1.15); PARTIAL THROMBOPLASTIN TIME 30.4 SEC (26.3-35.5); PROTHROMBIN TIME 10.8 SEC (9.6-11.6)
[2019-03-17 21:30] LABS: ALBUMIN 2.7 g/dL (3.5-5.0); BILIRUBIN,TOTAL 0.3 mg/dL (0.2-1.0); TOTAL PROTEIN, SERUM 6.9 g/dL (6.0-8.3)
[2019-03-17] MEDS ORDERED: ONDANSETRON HCL 4 MG/2 ML VIAL ONE (21:45)
[2019-03-17] MEDS ORDERED: MORPHINE SULFATE 4 MG/1ML SYG ONE (23:16)
[2019-03-18] MEDS ORDERED: POTASSIUM BICARB/CIT AC 25 MEQ TABLET.EFF ONE (00:37)
[2019-03-18] MEDS ORDERED: IOHEXOL-350 75 ML VIAL IV ONE ×2 (00:49→17:33)
[2019-03-18] MEDS: SODIUM CHLORIDE 0.9% 1000ML 1,000 ML IV SCH ×2 (01:45→20:33)
[2019-03-18] MEDS ORDERED: ONDANSETRON HCL 4 MG/2 ML VIAL IVP PRN (01:45)
--- NOTE | 2019-03-18 02:37 | NUR ---
ADMISSION TRANSFERRED FROM ER VIA STRETCHER, AWAKE, ALERT AND VERBALLY RESPONSIVE. ABLE TO AMBULATE FROM STRETCHER TO BED, STEADY GAIT OBSERVED. NO C/O PAIN OR DISCOMFORT AT THIS TIME. ORIENTED TO ROOM, CALL PEARL WITHIN REACH, BED IN LOWEST POSITION. Addendum: 03/18/19 at 0240 by WALE ESPOSITO RN Amended: Links added.
[2019-03-18 02:40] VITALS: BP 136/80
[2019-03-18] MEDS ORDERED: SITA1TBM7 PO (03:24)
[2019-03-18] MEDS ORDERED: SERT50TA12 PO (03:24)
[2019-03-18] MEDS: INSULIN HUMULIN R 100 UNIT/ML 3ML SQ SCH ×3 (05:54→17:45)
[2019-03-18 07:29] LABS: CREATININE 1.1 mg/dL (0.5-1.5); POTASSIUM 3.7 mmol/L (3.5-5.1)
[2019-03-18 07:48] VITALS: BP 129/84
[2019-03-18] MEDS: FAMOTIDINE/PF 20 MG/2 ML VIAL IV SCH ×2 (09:00→20:36)
[2019-03-18] MEDS: ACETAMINOPHEN 325 MG TAB PO PRN (09:04)
[2019-03-18] MEDS ORDERED: BUSPIRONE HCL 5 MG TABLET PO PRN (10:45)
[2019-03-18] MEDS: METFORMIN HCL PO SCH (10:54)
[2019-03-18] MEDS: SITAGLIPTIN PHOS PO SCH (10:54)
[2019-03-18 11:28] VITALS: BP 136/77
--- NOTE | 2019-03-18 11:50 | NUR ---
I INFORMED DR SIN OF D - DIMER LAB GREATER THAN 10,000; RECEIVED ORDER FOR LOVENOX 40 MG SQ DAILY AND PT IS ALREADY PENDING A VENOUS DOPPLER OF BLE.
[2019-03-18] MEDS ORDERED: ENOXAPARIN SODIUM 40 MG/0.4 ML SYRINGE SQ SCH (12:00)
[2019-03-18] MEDS ORDERED: ENOXAPARIN SODIUM 40 MG/0.4 ML SYRINGE SQ ONE (12:04)
[2019-03-18] MEDS: LACTULOSE 20 GM/30 ML UDCUP PO SCH ×3 (12:08→20:36)
[2019-03-18] MEDS: LIDOCAINE HCL-MPF 1% 2ML VIAL IV PRN (12:14)
[2019-03-18] MEDS: POTASSIUM CHLORIDE 20MEQ/100ML 100 ML IV PRN (12:15)
--- NOTE | 2019-03-18 12:46 | NUR ---
i have spoken to us tech and asked for the us venous dopplers to ble to be done stat; he stated understanding, i have changed original order to stat.
[2019-03-18 16:32] VITALS: BP 157/86
--- NOTE | 2019-03-18 16:34 | NUR ---
DCP CM met with pt discussed dc plans. Pt is independent prior to admission, lives at home with spouse and 2 children. Denies any other equipments/services. Feels safe to go back home, spouse able to assist with transportation pt verbalized he goes to [facility] for meds and follows up with Dr Cazares. Pt is a self pay, [facility] assisting. Given [facility] packet. DC plan to home once stable. CM to cont to follow up. Addendum: 03/18/19 at 1640 by ZURDO SHAFER LVN CM Amended: Links added.
[2019-03-18] MEDS: MORPHINE SULFATE 2 MG/ML 1ML SYG IVP PRN (18:46)
[2019-03-18 19:45] VITALS: BP 156/73
[2019-03-18] MEDS: KETOROLAC TROMETHAMINE 15MG/ML IV PRN (20:36)
[2019-03-18] MEDS: CARVEDILOL 6.25 MG TABLET PO SCH (20:36)
[2019-03-18] MEDS: PITAVASTATIN CALCIUM 4 MG PO SCH (20:42)
[2019-03-18 23:36] VITALS: BP 141/81
[2019-03-19] MEDS: MORPHINE SULFATE 2 MG/ML 1ML SYG IVP PRN ×4 (00:36→22:50)
[2019-03-19 03:55] VITALS: BP 154/81
[2019-03-19] MEDS: SODIUM CHLORIDE 0.9% 1000ML 1,000 ML IV SCH ×2 (04:25→14:15)
[2019-03-19] MEDS: LACTULOSE 20 GM/30 ML UDCUP PO SCH ×4 (04:25→19:48)
[2019-03-19 05:01] LABS: BASOPHILS % (AUTO) 0.3 % (0.0-5.0); EOSINOPHILS % (AUTO) 0.6 % (0.0-8.0); HEMATOCRIT 38.5 % (42-54); LYMPHOCYTES % (AUTO) 12.4 % (21.0-51.0); MEAN CORPUSCULAR HEMOGLOBIN 27.5 pg (27.0-33.0); MEAN CORPUSCULAR HGB CONC 31.9 g/dL (32.0-36.0); MEAN CORPUSCULAR VOLUME 86.1 fL (79-99); NEUTROPHILS % (AUTO) 79.1 % (40.0-77.0); PLATELET COUNT (AUTO) 98 K/uL (130-400); RED BLOOD CELL COUNT(AUTO) 4.47 MIL/uL (4.50-6.20); RED CELL DISTRIBUTION WIDTH 13.8 % (11.0-15.5); WHITE BLOOD COUNT (AUTO) 3.6 K/uL (4.8-10.8)
[2019-03-19 05:17] LABS: HEMOGLOBIN A1C 6.3 % (4.0-6.0)
[2019-03-19 05:31] LABS: ALBUMIN 2.4 g/dL (3.5-5.0); BILIRUBIN,TOTAL 0.5 mg/dL (0.2-1.0); CREATININE 1.1 mg/dL (0.5-1.5); POTASSIUM 3.6 mmol/L (3.5-5.1); TOTAL PROTEIN, SERUM 6.4 g/dL (6.0-8.3)
[2019-03-19] MEDS: INSULIN HUMULIN R 100 UNIT/ML 3ML SQ SCH ×4 (05:48→18:00)
[2019-03-19 07:15] VITALS: BP 147/80
[2019-03-19] MEDS: SITAGLIPTIN PHOS PO SCH (09:00)
[2019-03-19] MEDS: ENOXAPARIN SODIUM 40 MG/0.4 ML SYRINGE SQ SCH (09:00)
[2019-03-19] MEDS: METFORMIN HCL PO SCH (09:00)
[2019-03-19] MEDS: FAMOTIDINE/PF 20 MG/2 ML VIAL IV SCH ×2 (10:00→19:48)
[2019-03-19] MEDS: CARVEDILOL 6.25 MG TABLET PO SCH ×2 (10:03→19:48)
[2019-03-19] MEDS: LOSARTAN 50 MG TABLET PO SCH (10:03)
[2019-03-19] MEDS: SPIRONOLACTONE 25 MG TAB PO SCH (10:04)
[2019-03-19] MEDS: FUROSEMIDE 40 MG TABLET PO SCH (10:04)
[2019-03-19] MEDS: SERTRALINE HCL 50 MG TABLET PO SCH (10:04)
[2019-03-19 11:28] VITALS: BP 124/66
--- NOTE | 2019-03-19 15:25 | NUR ---
LOVENOX NONADMIN DR. MOODY STATES NOT TO ADMINISTER SCHEDULED LOVENOX TODAY DUE TO PLATELET COUNT 98.
--- NOTE | 2019-03-19 15:30 | NUR ---
TEMP 102.4 PATIENT REPORTS FEELING "WARM". OBTAINED ORAL TEMPERATURE READING OF 102.[address] MOODY WHO WAS ROUNDING AT THIS TIME. ADMINISTERED TYLENOL 650MG PO. APPLIED ICE PACKS AND REMOVED BLANKET WELL. PATIENT AND VERBALIZED UNDERSTANDING OF PURPOSE FOR TYLENOL AND COOLING MEASURES TO DECREASE BODY TEMPERATURE.
[2019-03-19] MEDS: ACETAMINOPHEN 325 MG TAB PO PRN ×2 (15:36→22:50)
[2019-03-19] MEDS ORDERED: VANCOMYCIN PROTOCOL PER PHARMACY IV SCH (15:45)
[2019-03-19] MEDS: KETOROLAC TROMETHAMINE 15MG/ML IV PRN (15:53)
[2019-03-19 16:23] VITALS: BP 132/69
[2019-03-19] MEDS ORDERED: DIPHENHYDRAMINE HCL 25 MG CAPSULE ONE (16:57)
[2019-03-19] MEDS ORDERED: DIPHENHYDRAMINE HCL 25 MG CAPSULE PO PRN (17:00)
[2019-03-19] MEDS: ZOSYN 3.375GM+NS 50ML 50 ML IV SCH ×2 (17:27→22:54)
[2019-03-19] MEDS: VANCOMYCIN 1GM+NS 250ML 250 ML IV SCH (18:08)
[2019-03-19 19:48] VITALS: BP 147/98
[2019-03-19] MEDS: PITAVASTATIN CALCIUM 4 MG PO SCH (19:48)
[2019-03-19 23:45] VITALS: BP 175/95
[2019-03-20] MEDS: MORPHINE SULFATE 2 MG/ML 1ML SYG IVP PRN (02:06)
[2019-03-20] MEDS: LACTULOSE 20 GM/30 ML UDCUP PO SCH ×4 (02:06→21:29)
[2019-03-20 03:42] VITALS: BP 141/69
[2019-03-20] MEDS: INSULIN HUMULIN R 100 UNIT/ML 3ML SQ SCH ×4 (06:00→17:42)
[2019-03-20 06:11] LABS: BASOPHILS % (AUTO) 0.2 % (0.0-5.0); EOSINOPHILS % (AUTO) 0.5 % (0.0-8.0); HEMATOCRIT 39.7 % (42-54); LYMPHOCYTES % (AUTO) 13.4 % (21.0-51.0); MEAN CORPUSCULAR HEMOGLOBIN 27.3 pg (27.0-33.0); MEAN CORPUSCULAR VOLUME 85.4 fL (79-99); MONOCYTES % (AUTO) 3.3 % (3.0-13.0); NEUTROPHILS % (AUTO) 81.9 % (40.0-77.0); PLATELET COUNT (AUTO) 105 K/uL (130-400); RED BLOOD CELL COUNT(AUTO) 4.65 MIL/uL (4.50-6.20); RED CELL DISTRIBUTION WIDTH 13.9 % (11.0-15.5); WHITE BLOOD COUNT (AUTO) 4.3 K/uL (4.8-10.8)
[2019-03-20 06:14] LABS: ALBUMIN 2.4 g/dL (3.5-5.0); BILIRUBIN,TOTAL 0.3 mg/dL (0.2-1.0); POTASSIUM 3.6 mmol/L (3.5-5.1); TOTAL PROTEIN, SERUM 6.6 g/dL (6.0-8.3)
[2019-03-20] MEDS: SODIUM CHLORIDE 0.9% 1000ML 1,000 ML IV SCH (06:36)
[2019-03-20] MEDS: VANCOMYCIN 1GM+NS 250ML 250 ML IV SCH ×2 (07:33→21:32)
[2019-03-20 07:45] VITALS: BP 156/81
[2019-03-20] MEDS: METFORMIN HCL PO SCH (09:00)
[2019-03-20] MEDS: SITAGLIPTIN PHOS PO SCH (09:00)
[2019-03-20] MEDS: ZOSYN 3.375GM+NS 50ML 50 ML IV SCH ×2 (09:58→16:32)
[2019-03-20] MEDS: CARVEDILOL 6.25 MG TABLET PO SCH ×2 (09:59→21:32)
[2019-03-20] MEDS: FAMOTIDINE/PF 20 MG/2 ML VIAL IV SCH ×2 (09:59→21:32)
[2019-03-20] MEDS: FUROSEMIDE 40 MG TABLET PO SCH (09:59)
[2019-03-20] MEDS: SERTRALINE HCL 50 MG TABLET PO SCH (09:59)
[2019-03-20] MEDS: SPIRONOLACTONE 25 MG TAB PO SCH (10:00)
[2019-03-20] MEDS: LOSARTAN 50 MG TABLET PO SCH (10:00)
[2019-03-20] MEDS: ENOXAPARIN SODIUM 40 MG/0.4 ML SYRINGE SQ SCH (10:01)
[2019-03-20 11:23] VITALS: BP 152/88
[2019-03-20] MEDS: DEXTROSE 5%-LACTATED RINGERS 1,000 ML IV SCH (13:10)
[2019-03-20 16:29] VITALS: BP 136/79
[2019-03-20 20:00] VITALS: BP 151/87
[2019-03-20] MEDS: PITAVASTATIN CALCIUM 4 MG PO SCH (21:00)
[2019-03-20] MEDS: OSELTAMIVIR PHOSPHATE 75 MG CAP PO SCH (21:32)
[2019-03-20] MEDS: DOXYCYCLINE HYCLATE 100 MG TABLET PO SCH (21:32)
[2019-03-20] MEDS: POTASSIUM CHLORIDE 20MEQ/100ML 100 ML IV PRN (21:39)
[2019-03-21] VITALS (7 sets, daily range): BP systolic 108–158; BP diastolic 59–89
[2019-03-21] MEDS: ZOSYN 3.375GM+NS 50ML 50 ML IV SCH ×4 (00:19→23:23)
[2019-03-21] MEDS: LACTULOSE 20 GM/30 ML UDCUP PO SCH ×4 (04:45→21:55)
[2019-03-21] MEDS: DEXTROSE 5%-LACTATED RINGERS 1,000 ML IV SCH (05:11)
[2019-03-21] MEDS: INSULIN HUMULIN R 100 UNIT/ML 3ML SQ SCH ×4 (06:00→18:00)
[2019-03-21 06:07] LABS: BASOPHILS % (AUTO) 0.4 % (0.0-5.0); EOSINOPHILS % (AUTO) 0.4 % (0.0-8.0); HEMATOCRIT 40.3 % (42-54); LYMPHOCYTES % (AUTO) 22.6 % (21.0-51.0); MEAN CORPUSCULAR HEMOGLOBIN 27.5 pg (27.0-33.0); MEAN CORPUSCULAR HGB CONC 32.3 g/dL (32.0-36.0); MEAN CORPUSCULAR VOLUME 85.2 fL (79-99); MONOCYTES % (AUTO) 4.3 % (3.0-13.0); NEUTROPHILS % (AUTO) 71.4 % (40.0-77.0); PLATELET COUNT (AUTO) 116 K/uL (130-400); RED BLOOD CELL COUNT(AUTO) 4.73 MIL/uL (4.50-6.20); RED CELL DISTRIBUTION WIDTH 13.8 % (11.0-15.5); WHITE BLOOD COUNT (AUTO) 5.4 K/uL (4.8-10.8)
[2019-03-21 06:11] LABS: ALBUMIN 2.5 g/dL (3.5-5.0); BILIRUBIN,TOTAL 0.3 mg/dL (0.2-1.0); CREATININE 1.1 mg/dL (0.5-1.5); POTASSIUM 3.6 mmol/L (3.5-5.1); TOTAL PROTEIN, SERUM 6.8 g/dL (6.0-8.3)
[2019-03-21 08:16] LABS: BAND NEUTROPHILS % (MANUAL) 12 % (0-2); BLASTS, MANUAL % 2 (0-0); EOSINOPHILS % (MANUAL) 1 % (1-6); LYMPHOCYTES % (MANUAL) 9 % (22-44); MAN.DIFF COMMENT-IMPRESSION MANUAL DIFFERENTIAL; MONOCYTES % (MANUAL) 3 % (2-9); REACTIVE LYMPHOCYTES 11 % (0-0); SEGMENTED NEUTROPHILS % 62 % (40-70)
[2019-03-21] MEDS: DOXYCYCLINE HYCLATE 100 MG TABLET PO SCH ×2 (08:17→20:07)
[2019-03-21] MEDS: LOSARTAN 50 MG TABLET PO SCH (08:17)
[2019-03-21] MEDS: FUROSEMIDE 40 MG TABLET PO SCH (08:17)
[2019-03-21] MEDS: FAMOTIDINE/PF 20 MG/2 ML VIAL IV SCH ×2 (08:17→20:08)
[2019-03-21] MEDS: CARVEDILOL 6.25 MG TABLET PO SCH ×2 (08:18→20:08)
[2019-03-21] MEDS: SERTRALINE HCL 50 MG TABLET PO SCH (08:18)
[2019-03-21] MEDS: SPIRONOLACTONE 25 MG TAB PO SCH (08:18)
[2019-03-21] MEDS: OSELTAMIVIR PHOSPHATE 75 MG CAP PO SCH ×2 (08:18→20:07)
[2019-03-21] MEDS: ENOXAPARIN SODIUM 40 MG/0.4 ML SYRINGE SQ SCH (08:19)
[2019-03-21] MEDS: VANCOMYCIN 1GM+NS 250ML 250 ML IV SCH (08:49)
[2019-03-21] MEDS: VANCOMYCIN 1.5 GM in SODIUM CHLORIDE 0.9% 250 ML IV SCH ×2 (09:00→20:08)
[2019-03-21] MEDS: SITAGLIPTIN PHOS PO SCH (09:00)
[2019-03-21] MEDS: METFORMIN HCL PO SCH (09:00)
[2019-03-21] MEDS ORDERED: COMPOUND IV REFRIGERATED 1 EACH IVSOLN MISC PRN (09:15)
[2019-03-21] MEDS: LIDOCAINE HCL-MPF 1% 2ML VIAL IV PRN (12:59)
[2019-03-21] MEDS: POTASSIUM CHLORIDE 20MEQ/100ML 100 ML IV PRN (12:59)
[2019-03-21] MEDS: PITAVASTATIN CALCIUM 4 MG PO SCH (19:31)
[2019-03-22 04:00] VITALS: BP 137/68
[2019-03-22] MEDS: LACTULOSE 20 GM/30 ML UDCUP PO SCH ×3 (04:08→16:45)
[2019-03-22] MEDS: DEXTROSE 5%-LACTATED RINGERS 1,000 ML IV SCH (04:25)
[2019-03-22 05:23] LABS: BASOPHILS % (AUTO) 0.9 % (0.0-5.0); EOSINOPHILS % (AUTO) 1.5 % (0.0-8.0); HEMATOCRIT 39.4 % (42-54); LYMPHOCYTES % (AUTO) 32.9 % (21.0-51.0); MEAN CORPUSCULAR HEMOGLOBIN 27.5 pg (27.0-33.0); MEAN CORPUSCULAR HGB CONC 32.5 g/dL (32.0-36.0); MEAN CORPUSCULAR VOLUME 84.7 fL (79-99); MONOCYTES % (AUTO) 6.2 % (3.0-13.0); NEUTROPHILS % (AUTO) 57.6 % (40.0-77.0); PLATELET COUNT (AUTO) 133 K/uL (130-400); RED BLOOD CELL COUNT(AUTO) 4.65 MIL/uL (4.50-6.20); WHITE BLOOD COUNT (AUTO) 6.6 K/uL (4.8-10.8)
[2019-03-22 05:55] LABS: ALBUMIN 2.4 g/dL (3.5-5.0); BILIRUBIN,TOTAL 0.3 mg/dL (0.2-1.0); POTASSIUM 3.5 mmol/L (3.5-5.1); TOTAL PROTEIN, SERUM 6.8 g/dL (6.0-8.3)
[2019-03-22] MEDS: INSULIN HUMULIN R 100 UNIT/ML 3ML SQ SCH ×5 (06:00→20:18)
[2019-03-22] MEDS: POTASSIUM CHLORIDE 20MEQ/100ML 100 ML IV PRN (06:25)
[2019-03-22] MEDS: LIDOCAINE HCL-MPF 1% 2ML VIAL IV PRN (06:25)
[2019-03-22 08:00] VITALS: BP 151/83
[2019-03-22] MEDS: VANCOMYCIN 1.5 GM in SODIUM CHLORIDE 0.9% 250 ML IV SCH (08:37)
[2019-03-22] MEDS: ZOSYN 3.375GM+NS 50ML 50 ML IV SCH ×3 (08:37→20:16)
[2019-03-22] MEDS: LOSARTAN 50 MG TABLET PO SCH (08:38)
[2019-03-22] MEDS: OSELTAMIVIR PHOSPHATE 75 MG CAP PO SCH ×2 (08:38→20:17)
[2019-03-22] MEDS: SPIRONOLACTONE 25 MG TAB PO SCH (08:38)
[2019-03-22] MEDS: ENOXAPARIN SODIUM 40 MG/0.4 ML SYRINGE SQ SCH (08:38)
[2019-03-22] MEDS: FAMOTIDINE/PF 20 MG/2 ML VIAL IV SCH ×2 (08:38→20:18)
[2019-03-22] MEDS: CARVEDILOL 6.25 MG TABLET PO SCH ×2 (08:39→20:18)
[2019-03-22] MEDS: FUROSEMIDE 40 MG TABLET PO SCH (08:39)
[2019-03-22] MEDS: SITAGLIPTIN PHOS PO SCH (08:39)
[2019-03-22] MEDS: METFORMIN HCL PO SCH (08:39)
[2019-03-22] MEDS: DOXYCYCLINE HYCLATE 100 MG TABLET PO SCH ×2 (08:39→20:18)
[2019-03-22] MEDS: SERTRALINE HCL 50 MG TABLET PO SCH (08:39)
--- NOTE | 2019-03-22 11:06 | NUR ---
START PERIPHERAL PARENTERAL NUTRITION (PPN) RD CONSULTS DUE TO LOS X 5. DX PANCREATITIS. PT HAS BEEN NPO X 5 DAYS NOW. LABS REVIEWED. MEDS REVIEWED. SKIN INTACT. LBM: 03/21; DIARRHEA NOTED. RD RECOMMENDS TO START PERIPHERAL PARENTERAL NUTRITION (PPN) USING CLINIMIX 4.25/5 AT 90ML/HR - RN NOTIFIED ADD 10ML MULTIVITAMINS DO NOT ADD 20% INTRA LIPIDS DUE TO ELEVATED LIPASE AND TG MONITOR CMP, K, Mg, PHOS FOR REFEEDING SYNDROME MONITOR LIPASE AND LIPID PANEL EVERY MON-MON-MON RD WILL CONTINUE TO MONITOR AND EVALUATE, THANK YOU. Addendum: 03/22/19 at [address] Amended: Links added.
[2019-03-22 11:57] VITALS: BP 146/52
[2019-03-22 16:22] VITALS: BP 118/73
[2019-03-22 19:27] VITALS: BP 132/79
[2019-03-22] MEDS: PITAVASTATIN CALCIUM 4 MG PO SCH (19:32)
[2019-03-22] MEDS: VANCOMYCIN 2 GM in SODIUM CHLORIDE 0.9% 500ML 500 ML IV SCH (22:12)
[2019-03-23] VITALS (7 sets, daily range): BP systolic 109–130; BP diastolic 54–95
[2019-03-23] MEDS: INSULIN HUMULIN R 100 UNIT/ML 3ML SQ SCH ×4 (06:00→20:18)
[2019-03-23] MEDS: CARVEDILOL 6.25 MG TABLET PO SCH ×2 (09:00→20:32)
[2019-03-23] MEDS: METFORMIN HCL PO SCH (09:31)
[2019-03-23] MEDS: SITAGLIPTIN PHOS PO SCH (09:31)
[2019-03-23] MEDS: FUROSEMIDE 40 MG TABLET PO SCH (09:40)
[2019-03-23] MEDS: OSELTAMIVIR PHOSPHATE 75 MG CAP PO SCH ×2 (09:40→20:31)
[2019-03-23] MEDS: SPIRONOLACTONE 25 MG TAB PO SCH (09:40)
[2019-03-23] MEDS: FAMOTIDINE/PF 20 MG/2 ML VIAL IV SCH ×2 (09:41→20:31)
[2019-03-23] MEDS: ENOXAPARIN SODIUM 40 MG/0.4 ML SYRINGE SQ SCH (09:41)
[2019-03-23] MEDS: SERTRALINE HCL 50 MG TABLET PO SCH (09:41)
[2019-03-23] MEDS: LOSARTAN 50 MG TABLET PO SCH (09:41)
[2019-03-23] MEDS: ZOSYN 3.375GM+NS 50ML 50 ML IV SCH ×3 (09:41→23:12)
[2019-03-23] MEDS: DOXYCYCLINE HYCLATE 100 MG TABLET PO SCH ×2 (09:41→20:31)
[2019-03-23] MEDS: VANCOMYCIN 2 GM in SODIUM CHLORIDE 0.9% 500ML 500 ML IV SCH ×2 (09:41→20:31)
--- NOTE | 2019-03-23 13:23 | NUR ---
Nutrition Follow-up: Pt. on GI Soft [place] diet with good p.o. intake, as per pt. Labs reviewed(Alb 2.4, BG 171, Amylase 193, Lipase 1954). LBM: 03/22/2019. SR-17, elastic. Recommendations: 1) Rec. 75gm CCD Heart Healthy GI Soft [place] diet. 2) Rec. 30ml ProMod BID with B'fast and dinner meals. 3) Continue to monitor pt's nutritional status. 4) Consult RD as nutrition concerns arise. Addendum: 03/23/19 at [address] Amended: Links added.
[2019-03-23 13:45] LABS: MEAN CORPUSCULAR HEMOGLOBIN 27.1 pg (27.0-33.0); MEAN CORPUSCULAR HGB CONC 31.7 g/dL (32.0-36.0); MEAN CORPUSCULAR VOLUME 85.6 fL (79-99); PLATELET COUNT (AUTO) 181 K/uL (130-400); RED BLOOD CELL COUNT(AUTO) 4.79 MIL/uL (4.50-6.20); RED CELL DISTRIBUTION WIDTH 14.2 % (11.0-15.5); WHITE BLOOD COUNT (AUTO) 7.5 K/uL (4.8-10.8)
[2019-03-23 13:54] LABS: CREATININE 0.9 mg/dL (0.5-1.5); POTASSIUM 3.7 mmol/L (3.5-5.1)
[2019-03-23 14:30] LABS: B-TYPE NATRIURETIC PEPTIDE 35 pg/mL (0-100)
[2019-03-23] MEDS: PITAVASTATIN CALCIUM 4 MG PO SCH (19:38)
[2019-03-24 04:00] VITALS: BP 133/77
[2019-03-24] MEDS: INSULIN HUMULIN R 100 UNIT/ML 3ML SQ SCH ×4 (05:38→23:36)
[2019-03-24 06:17] LABS: BASOPHILS % (AUTO) 0.7 % (0.0-5.0); EOSINOPHILS % (AUTO) 4.1 % (0.0-8.0); HEMATOCRIT 40.2 % (42-54); LYMPHOCYTES % (AUTO) 52.6 % (21.0-51.0); MEAN CORPUSCULAR HEMOGLOBIN 27.4 pg (27.0-33.0); MEAN CORPUSCULAR HGB CONC 32.3 g/dL (32.0-36.0); MEAN CORPUSCULAR VOLUME 84.8 fL (79-99); MONOCYTES % (AUTO) 8.1 % (3.0-13.0); NEUTROPHILS % (AUTO) 33.9 % (40.0-77.0); PLATELET COUNT (AUTO) 182 K/uL (130-400); RED BLOOD CELL COUNT(AUTO) 4.74 MIL/uL (4.50-6.20); WHITE BLOOD COUNT (AUTO) 8.1 K/uL (4.8-10.8)
[2019-03-24 06:32] LABS: ALBUMIN 2.5 g/dL (3.5-5.0); BILIRUBIN,TOTAL 0.3 mg/dL (0.2-1.0); CREATININE 0.8 mg/dL (0.5-1.5); MAGNESIUM 1.7 mg/dL (1.80-2.40); POTASSIUM 3.4 mmol/L (3.5-5.1); TOTAL PROTEIN, SERUM 6.6 g/dL (6.0-8.3)
[2019-03-24] MEDS ORDERED: POTASSIUM CHLORIDE 20 MEQ ERTAB PO ONE (06:50)
[2019-03-24] MEDS ORDERED: POTASSIUM CHLORIDE 10% ELIXIR 20 MEQ/15 ML UDCUP PO PRN (07:00)
[2019-03-24] MEDS ORDERED: POTASSIUM CHLORIDE 20 MEQ ERTAB PO PRN (07:00)
[2019-03-24 08:00] VITALS: BP 123/75
[2019-03-24] MEDS: SITAGLIPTIN PHOS PO SCH (09:00)
[2019-03-24] MEDS: METFORMIN HCL PO SCH (09:00)
[2019-03-24] MEDS: CARVEDILOL 6.25 MG TABLET PO SCH ×2 (09:00→20:10)
[2019-03-24] MEDS: FAMOTIDINE/PF 20 MG/2 ML VIAL IV SCH ×2 (11:25→20:09)
[2019-03-24] MEDS: LOSARTAN 50 MG TABLET PO SCH (11:26)
[2019-03-24] MEDS: DOXYCYCLINE HYCLATE 100 MG TABLET PO SCH ×2 (11:26→20:10)
[2019-03-24] MEDS: OSELTAMIVIR PHOSPHATE 75 MG CAP PO SCH ×2 (11:26→20:10)
[2019-03-24] MEDS: SERTRALINE HCL 50 MG TABLET PO SCH (11:26)
[2019-03-24] MEDS: SPIRONOLACTONE 25 MG TAB PO SCH (11:26)
[2019-03-24] MEDS: ZOSYN 3.375GM+NS 50ML 50 ML IV SCH ×3 (11:27→23:34)
[2019-03-24] MEDS: FUROSEMIDE 40 MG TABLET PO SCH (11:27)
[2019-03-24] MEDS: ENOXAPARIN SODIUM 40 MG/0.4 ML SYRINGE SQ SCH (11:28)
[2019-03-24 11:41] VITALS: BP 119/67
[2019-03-24] MEDS: VANCOMYCIN 2.25 GM in SODIUM CHLORIDE 0.9% 500ML 500 ML IV SCH (13:33)
[2019-03-24 17:00] VITALS: BP 131/72
[2019-03-24 19:23] VITALS: BP 138/86
[2019-03-24] MEDS: PITAVASTATIN CALCIUM 4 MG PO SCH (20:10)
[2019-03-24 23:33] VITALS: BP 115/44
[2019-03-25] MEDS: VANCOMYCIN 2.25 GM in SODIUM CHLORIDE 0.9% 500ML 500 ML IV SCH (01:06)
[2019-03-25 03:58] VITALS: BP 117/72
[2019-03-25 05:22] LABS: BASOPHILS % (AUTO) 1.2 % (0.0-5.0); HEMATOCRIT 40.9 % (42-54); LYMPHOCYTES % (AUTO) 51.9 % (21.0-51.0); MEAN CORPUSCULAR HEMOGLOBIN 27.7 pg (27.0-33.0); MEAN CORPUSCULAR HGB CONC 32.5 g/dL (32.0-36.0); MONOCYTES % (AUTO) 7.8 % (3.0-13.0); NEUTROPHILS % (AUTO) 32.8 % (40.0-77.0); PLATELET COUNT (AUTO) 209 K/uL (130-400); RED BLOOD CELL COUNT(AUTO) 4.81 MIL/uL (4.50-6.20); WHITE BLOOD COUNT (AUTO) 8.3 K/uL (4.8-10.8)
[2019-03-25 05:36] LABS: ALBUMIN 2.5 g/dL (3.5-5.0); BILIRUBIN,TOTAL 0.3 mg/dL (0.2-1.0); CREATININE 0.9 mg/dL (0.5-1.5); POTASSIUM 3.6 mmol/L (3.5-5.1); TOTAL PROTEIN, SERUM 6.6 g/dL (6.0-8.3)
[2019-03-25] MEDS: INSULIN HUMULIN R 100 UNIT/ML 3ML SQ SCH ×2 (06:41→11:30)
[2019-03-25] MEDS: ZOSYN 3.375GM+NS 50ML 50 ML IV SCH (06:41)
[2019-03-25 08:00] VITALS: BP 117/58
[2019-03-25] MEDS: METFORMIN HCL PO SCH (09:00)
[2019-03-25] MEDS: SITAGLIPTIN PHOS PO SCH (09:00)
[2019-03-25] MEDS: SPIRONOLACTONE 25 MG TAB PO SCH (09:28)
[2019-03-25] MEDS: OSELTAMIVIR PHOSPHATE 75 MG CAP PO SCH (09:28)
[2019-03-25] MEDS: DOXYCYCLINE HYCLATE 100 MG TABLET PO SCH (09:28)
[2019-03-25] MEDS: LOSARTAN 50 MG TABLET PO SCH (09:28)
[2019-03-25] MEDS: SERTRALINE HCL 50 MG TABLET PO SCH (09:29)
[2019-03-25] MEDS: FUROSEMIDE 40 MG TABLET PO SCH (09:29)
[2019-03-25] MEDS: FAMOTIDINE/PF 20 MG/2 ML VIAL IV SCH (09:29)
[2019-03-25] MEDS: CARVEDILOL 6.25 MG TABLET PO SCH (09:29)
[2019-03-25] MEDS: ENOXAPARIN SODIUM 40 MG/0.4 ML SYRINGE SQ SCH (09:30)
[2019-03-25 12:00] VITALS: BP 127/57
[2019-03-25] MEDS ORDERED: VANCOMYCIN 2.25 GM in SODIUM CHLORIDE 0.9% 500ML 500 ML IV SCH (13:00)
[2019-03-25] MEDS ORDERED: OSEL75 PO (13:39)
[2019-03-25] MEDS ORDERED: DOXY100T2 PO (13:39)
--- NOTE | 2019-03-25 14:50 | NUR ---
DISCHARGE PATIENT/SPOUSE GIVEN DISCHARGE INSTRUCTIONS VIA TEACH BACK. 20G PIV TO LEFT WRIST/RIGHT FOREARM DISCONTINUED, TIP INTACT. PATIENT TO FOLLOW UP WITH DR. MICHELLE AT [facility] AND DR. LAI. PATIENT STABLE AT THIS TIME. PATIENT/SPOUSE ESCORTED TO LOBBY BY [facility].
== END 2019-03-25 14:38 | disposition home or self-care (01) | DRG 871 ==
LOC: EDH 20:36 → EDHIP 20:37 → UNDOADMIN 03-18 01:39 → 4BH 03-18 02:28
PROVIDERS: ADMIT Hospitalist; ATTEND Hospitalist
DX: A41.9 Sepsis, unspecified organism (principal); K85.90 Acute pancreatitis without necrosis or infection, unspecified; J18.9 Pneumonia, unspecified organism; E87.1 Hypo-osmolality and hyponatremia; Z68.42 Body mass index [BMI] 45.0-49.9, adult; D61.818 Other pancytopenia; I42.0 Dilated cardiomyopathy; I50.22 Chronic systolic (congestive) heart failure; E87.6 Hypokalemia; K52.9 Noninfective gastroenteritis and colitis, unspecified; E66.01 Morbid (severe) obesity due to excess calories; I50.9 Heart failure, unspecified; I11.0 Hypertensive heart disease with heart failure; K74.60 Unspecified cirrhosis of liver; E11.9 Type 2 diabetes mellitus without complications; E78.1 Pure hyperglyceridemia; E78.5 Hyperlipidemia, unspecified; F32.9 Major depressive disorder, single episode, unspecified; F41.9 Anxiety disorder, unspecified; J11.1 Influenza due to unidentified influenza virus with other respiratory manifestations; Z95.0 Presence of cardiac pacemaker; Z91.19 Patient's noncompliance with other medical treatment and regimen; Z95.810 Presence of automatic (implantable) cardiac defibrillator; Z91.14 Patient's other noncompliance with medication regimen; Z82.49 Family history of ischemic heart disease and other diseases of the circulatory system; Z83.3 Family history of diabetes mellitus; Z84.1 Family history of disorders of kidney and ureter
CPT/HCPCS: 36415; 71045; 71046; 71275; 74177; 76705; 80048; 80053; 80061; 80202; 80305; 81003; 82150; 82948; 83036; 83690; 83735; 83880; 84145; 84478; 84484; 85025; 85027; 85378; 85610; 85730; 87040; 87046; 87177; 87486; 87581; 87633; 87798; 87804; 93005; 93306; 93970; 99291; G0378; J1650; J1885; J2270; J2405; J2543; J3370; J3480; J3490; J7030; J7040; Q0163; Q9967